=== PATIENT | female | born 1945 | race Caucasian/White ===

== ENCOUNTER 2017-03-11 20:10 | Emergency (ER) | payer OTHER ==
[~2017-03-11] VITALS: Ht 160 cm; Wt 63.5 kg
--- NOTE | 2017-03-11 21:36 | ED GENERAL ADULT ---
History of Present Illness General Chief Complaint: General Adult Stated Complaint: L SIDED PRINGLE'S, FOOT SWELLING, HX OF CVA Source: patient, family Exam Limitations: no limitations Vital Signs & Intake/Output Vital Signs & Intake/Output Vital Signs Date Time Temp Pulse Resp B/P Pulse O2 O2 Flow FiO2 Ox Delivery Rate 03/11 2124 Room Air 03/11 2032 99.1 76 18 116/79 97 Room Air ED Intake and Output 03/12 0000 03/11 1200 Intake Total 0 Output Total Balance 0 Intake, Oral 0 Patient 140 lb Weight Allergies Coded Allergies: codeine (Intermediate, NAUSEA 03/11/17) Uncoded Allergies: ERYTHROMYCIN (Intermediate, NAUSEA 03/11/17) Triage Note: PT TO TRIAGE WITH C/O BILAT FOOT EDEMA AND HEADACHE SINCE LAST NIGHT. HX OF CVA IN WITH R SIDED DEFICIT, PT USES CANE FOR AMBULATION. PT DENIES CHEST PAIN,SOB,ABD PAIN. REPORTS URINARY URGENCY WHICH IS CHRONIC. VSS. Triage Nurses Notes Reviewed? yes Onset: Gradual Duration: day(s):, waxing and waning Timing: recent history Injury Environment: home Severity: mild Modifying Factors: Improves With: rest. Worsens With: other (leg edema worse w/walking). HPI: 72 yo woman, h/o CVA in Sep 2016 with right sided weakness/numbness, presents with bilateral lower extremity swelling, right worse than left, also with headache. She notes, "I've been packing our home and I've been moving around a lot... The swelling seems to be worse at the end of the day.... My friend told me to get it checked out." She notes a mild throbbing headache, but no fever, sinus congestion. She has been taking her aspirin. She notes no dizziness, syncopal symptoms, or new weakness, or chest pain. Past History Travel History Traveled to [place] past 21 day No Medical History Any Pertinent Medical History? see below for history Neurological: CVA Cardiovascular: hypertension, hyperlipidemia Endocrine: hypothyroidism Surgical History Surgical History: none Psychosocial History What is your primary language Yemeni Tobacco Use: Never used Family History Hx Contributory? No Review of Systems Review of Systems Constitutional: Reports: no symptoms. EENTM: Reports: no symptoms. Respiratory: Reports: no symptoms. Cardiovascular: Reports: no symptoms. GI: Reports: no symptoms. Genitourinary: Reports: no symptoms. Musculoskeletal: Reports: no symptoms. Skin: Reports: no symptoms. Neurological/Psychological: Reports: no symptoms. Hematologic/Endocrine: Reports: no symptoms. Immunologic/Allergic: Reports: no symptoms. All Other Systems: Reviewed and Negative Physical Exam Physical Exam General Appearance: well developed/nourished, mild distress Head: atraumatic, normal appearance Eyes: Bilateral: normal appearance, PERRL, EOMI. Ears, Nose, Throat: normal pharynx, normal ENT inspection Neck: normal inspection, supple, full range of motion Respiratory: normal breath sounds, chest non-tender, no respiratory distress, quiet respiration, lungs clear Cardiovascular: regular rate/rhythm Gastrointestinal: normal bowel sounds, soft, non-tender, no organomegaly Back: normal inspection, normal range of motion, vertebral tenderness Extremities: normal inspection, normal capillary refill, normal range of motion, no edema Neurologic/Psych: no motor/sensory deficits, awake, alert, oriented x 3, normal mood/affect Skin: intact, normal color, warm/dry Core Measures ACS in differential dx? No CVA/TIA Diagnosis: No Severe Sepsis Present: No Septic Shock Present: No Progress Differential Diagnoses I considered the following diagnoses in my evaluation of the patient: Migraine headache versus cluster. I doubt CVA. Patient also with lower extremity edema, likely chronic venous insufficiency. I doubt DVT. Plan of Care: Orders Procedure Date/time Status URINALYSIS 03/11 2153 Complete TROPONIN LEVEL 03/11 2153 Complete PARTIAL THROMBOPLASTIN TIME 03/11 2153 Complete PROTHROMBIN TIME 03/11 2153 Complete COMPREHENSIVE METABOLIC PANEL 03/11 2153 Complete CBC WITHOUT DIFFERENTIAL 03/11 2153 Complete Laboratory Tests 03/11/17 2227: Anion Gap 12, Estimated GFR > 60, BUN/Creatinine Ratio 20.0, Glucose 100 H, Calcium 9.6, Total Bilirubin 0.4, AST 32, ALT 56 H, Alkaline Phosphatase 101, Troponin I < 0.01, Total Protein 6.4, Albumin 3.7, Globulin 2.7, Albumin/ Globulin Ratio 1.4, PT 11.3, INR 1.08, APTT 31, CBC w Diff NO MAN DIFF REQ, RBC 4.92, MCV 82.0, MCH 27.3, RDW 14.1, MPV 8.2, Gran % 52.2, Lymphocytes % 36.4, Monocytes % 8.6, Eosinophils % 2.5, Basophils % 0.3, Absolute Granulocytes 3.2, Absolute Lymphocytes 2.2, Absolute Monocytes 0.5, Absolute Eosinophils 0.1, Absolute Basophils 0, PUBS MCHC 33.3 03/11/173: Urine Color YEL, Urine Clarity CLEAR, Urine pH 5.5, Ur Specific [place] >= 1.030 , Urine Protein NEG, Urine Ketones TRACE H, Urine Nitrite NEG, Urine Bilirubin NEG, Urine Urobilinogen 0.2, Ur Leukocyte Esterase NEG, Ur Microscopic EXAM NOT REQUIRED, Urine Hemoglobin NEG, Urine Glucose NEG Diagnostic Imaging: Viewed by Me: Radiology Read, CT Scan. Discussed w/RAD: Radiology Read, CT Scan. Radiology Impression: head CT - old lacunar infarcts and microvascular changes. No acute infarct or bleed. Full report below. CXR Impression: no acute abnormality, no infiltrates, normal size heart, normal mediastinum Initial ED EKG: normal axis, normal intervals, normal p-waves, normal QRS complex, normal sinus rhythm Comments: PATIENT: BEVERLEY ARROYO PRESENT AGE: 72 PATIENT ACCOUNT NO: [id number] : 47 LOCATION: ER ORDERING PHYSICIAN: JAKE HOLCOMB MD SERVICE DATE: 03/11/17 EXAM TYPE: RAD - XRY-PORTABLE CHEST XRAY EXAMINATION: XR PORTABLE CHEST CLINICAL INFORMATION: CVA COMPARISON: None TECHNIQUE: Portable AP upright view of the chest was obtained. FINDINGS: The cardiomediastinal silhouette and pulmonary vascularity are normal. The lungs are clear. No pleural effusions or pneumothorax. The visualized bony thorax is unremarkable. IMPRESSION: No acute cardiopulmonary findings. DICTATED BY: BOBBY BRITO MD DATE/TIME DICTATED:03/11/172248 IT SENIOR ANALYST:NICOLA DATE/TIME TRANSCRIBED:03/11/172248 CONFIDENTIAL, DO NOT COPY WITHOUT APPROPRIATE AUTHORIZATION. <Electronically signed in Other Vendor System> SIGNED BY: BOBBY BRITO MD 03/11/174 PATIENT: BEVERLEY ARROYO PRESENT AGE: 72 PATIENT ACCOUNT NO: [id number] : 47 LOCATION: ER ORDERING PHYSICIAN: JAKE HOLCOMB MD SERVICE DATE: 04/16/17-2153 EXAM TYPE: CAT - CT HEAD WO IV CONTRAST EXAMINATION: CT HEAD WITHOUT CONTRAST CLINICAL INFORMATION: Left-sided headache. History of cerebrovascular accident. COMPARISON: No relevant prior imaging available. TECHNIQUE: Contiguous axial imaging was performed from the skull base to vertex without intravenous administration of contrast. DLP: 600.71 mGy-cm FINDINGS: There is no acute intracranial hemorrhage or abnormal extra axial collection. No intracranial mass effect or midline shift. Lateral and third ventricles are proportionate to the subarachnoid spaces. No hydrocephalus. There is a chronic lacunar infarct involving the posterior limb of the left internal capsule and numerous nonspecific foci of hypoattenuation throughout the periventricular white matter that most likely represent a chronic manifestation of small vessel ischemia. The calvarium and skull base are intact. Mastoid air cells and middle ear cavities are well aerated. Visualized paranasal sinuses are well aerated. IMPRESSION: There are numerous chronic small vessel ischemic changes within the periventricular white matter and a chronic lacunar infarct involving the posterior limb of the left internal capsule. No evidence of acute territorial infarct or hemorrhage. DICTATED BY: ABBY ECHEVERRIA MD DATE/TIME DICTATED:03/11/172331 IT SENIOR ANALYST:NICOLA DATE/TIME TRANSCRIBED:03/11/172331 CONFIDENTIAL, DO NOT COPY WITHOUT APPROPRIATE AUTHORIZATION. <Electronically signed in Other Vendor System> SIGNED BY: ABBY ECHEVERRIA MD 03/11 Departure Departure Disposition: HOME OR SELF CARE Condition: Stable Clinical Impression Primary Impression: Dependent edema Secondary Impressions: Headache Referrals: MELANIE OLGUIN,DIRK Werner (PCP/Family) Departure Forms: Customer Survey General Discharge Information Comments 03/12/17, 1:02am... pt feeling better in ED.... bedside u/s by edmd... no obvious dvt... I filled out form for patient to have u/s at daily in AM. Advised close follow up with PMD (she has appt at 3pm today) and return to ED if symptoms recur. Critical Care Note Critical Care Note Critical Care Time: non-applicable
[2017-03-11 22:35] LABS: ABSOLUTE BASOPHIL COUNT 0 /CUMM (0.0-0.2); ABSOLUTE EOSINOPHIL COUNT 0.1 /CUMM (0.0-0.7); ABSOLUTE GRANULOCYTE CT 3.2 /CUMM (1.4-6.5); ABSOLUTE LYMPH COUNT 2.2 /CUMM (1.2-3.4); ABSOLUTE MONOCYTE COUNT 0.5 /CUMM (0.10-0.60); BASOPHIL % 0.3 % (0.0-2.0); EOSINOPHIL % 2.5 % (0-5); GRANULOCYTE % 52.2 % (42.2-75.2); HEMATOCRIT 40.4 % (37-47); MEAN CORPUSCULAR HGB 27.3 PG (27.0-31.0); MEAN CORPUSCULAR HGB CONC 33.3 G/DL (33.0-37.0); MEAN PLATELET VOLUME 8.2 FL (7.4-10.4); PLATELET COUNT 253 /CUMM (130-400); RBC DISTRIBUTION WIDTH 14.1 % (11.5-14.5); RED BLOOD CELL CT 4.92 /CUMM (4.20-5.40); WHITE BLOOD CELL COUNT 6.1 /CUMM (4.8-10.8)
[2017-03-11 22:42] LABS: PT 11.3 SEC (9.4-12.5); PTT 31 SEC (25-37)
--- NOTE | 2017-03-11 22:53 | RADIOLOGY REPORT ---
EXAMINATION: XR PORTABLE CHEST CLINICAL INFORMATION: CVA COMPARISON: None TECHNIQUE: Portable AP upright view of the chest was obtained. FINDINGS: The cardiomediastinal silhouette and pulmonary vascularity are normal. The lungs are clear. No pleural effusions or pneumothorax. The visualized bony thorax is unremarkable. IMPRESSION: No acute cardiopulmonary findings.
--- NOTE | 2017-03-11 23:39 | CT SCAN REPORT ---
EXAMINATION: CT HEAD WITHOUT CONTRAST CLINICAL INFORMATION: Left-sided headache. History of cerebrovascular accident. COMPARISON: No relevant prior imaging available. TECHNIQUE: Contiguous axial imaging was performed from the skull base to vertex without intravenous administration of contrast. DLP: 600.71 mGy-cm FINDINGS: There is no acute intracranial hemorrhage or abnormal extra axial collection. No intracranial mass effect or midline shift. Lateral and third ventricles are proportionate to the subarachnoid spaces. No hydrocephalus. There is a chronic lacunar infarct involving the posterior limb of the left internal capsule and numerous nonspecific foci of hypoattenuation throughout the periventricular white matter that most likely represent a chronic manifestation of small vessel ischemia. The calvarium and skull base are intact. Mastoid air cells and middle ear cavities are well aerated. Visualized paranasal sinuses are well aerated. IMPRESSION: There are numerous chronic small vessel ischemic changes within the periventricular white matter and a chronic lacunar infarct involving the posterior limb of the left internal capsule. No evidence of acute territorial infarct or hemorrhage.
[2017-03-12 01:10] VITALS: BP 118/78
== END 2017-03-12 01:10 ==
LOC: ERH 20:10
PROVIDERS: Pediatrics
DX: R60.9 Edema, unspecified (principal); R51 Headache
CPT/HCPCS: 81003